=== PATIENT | male | born 1940 | race Caucasian/White ===

== ENCOUNTER 2016-09-02 19:13 | Emergency (ER) | payer OTHER ==
[~2016-09-02] VITALS: Ht 185.4 cm; Wt 97.5 kg
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
--- NOTE | 2016-09-02 20:28 | CT SCAN REPORT ---
EXAMINATION: CT HEAD AND CERVICAL SPINE WITHOUT CONTRAST CLINICAL INFORMATION: Head injury following fall. COMPARISON: Noncontrast head CT 10/20/2011. TECHNIQUE: Contiguous axial imaging was performed from the thoracic inlet to the vertex without intravenous administration of contrast. 2-D coronal and sagittal reformatted images of the cervical spine were obtained at the acquisition workstation. DLP: 1836 mGy-cm. FINDINGS: Head: Noncontrast CT imaging of the head is notable for large right periorbital hematoma and soft tissue swelling. No intraconal or extraconal stranding is identified. There are no appreciable retrobulbar hematomas. There is no acute intracranial abnormality. No acute intracranial hemorrhage, mass or mass effect or abnormal extra-axial fluid collections are identified. The density within the dural venous sinuses is within normal limits. The ventricles are normal in size, without hydrocephalus. There are no focal areas of hypoattenuation within a vascular distribution to suggest acute transcortical ischemia. The basilar cisterns are patent. No acute calvarial abnormality is identified. The imaged paranasal sinuses and mastoid air cells are well aerated. Cervical spine: No acute cervical spine fracture or subluxation. There are mild to moderate degenerative changes of the cervical spine, most significant at C6-C7. Prevertebral soft tissues are within normal limits. There is moderate multilevel facet arthrosis of the cervical spine with varying degrees of neuroforaminal narrowing. The visualized bilateral lung apices are clear. IMPRESSION: 1. Large right periorbital hematoma and soft tissue swelling. Otherwise, no acute intracranial abnormality. No significant intraconal or extraconal stranding and no retrobulbar hematoma. 2. Mild to moderate degenerative changes of the cervical spine, without evidence of acute cervical spine fracture or subluxation.
--- NOTE | 2016-09-02 20:32 | CT SCAN REPORT ---
EXAMINATION: CT MAXILLOFACIAL WITHOUT CONTRAST CLINICAL INFORMATION: Head injury following fall. COMPARISON: None. TECHNIQUE: Multidetector helical imaging was performed in the axial plane with generation of coronal and sagittal reformatted images. 2-D coronal and sagittal reformatted images of the face were obtained at the acquisition workstation. DLP: 1836 mGy-cm. FINDINGS: Noncontrast CT imaging of the face demonstrates large right periorbital soft tissue swelling and hematoma. The bilateral orbits are intact. No orbital roof or orbital floor fractures are identified. There is no significant intraconal or extraconal stranding. No retrobulbar hematomas are identified. The lamina papyracea are intact. The paranasal sinuses and mastoid air cells are well aerated. The carotid canals are normally covered by bone. The ethmoid roofs and cribriform plates are intact. The bilateral nasal bones are intact. There is minimal leftward nasal septal deviation. The mandibular condyles articulate appropriately within the bilateral temporomandibular joints. Limited evaluation of the intracranial contents demonstrates no acute intracranial abnormality. IMPRESSION: Large right periorbital hematoma and soft tissue swelling. No acute maxillofacial fractures. The orbital floors and orbital roofs are intact. No orbital fractures are identified.
[2016-09-02 21:18] VITALS: BP 168/98
== END 2016-09-02 21:20 ==
LOC: ERH 19:13
DX: S00.83XA Contusion of other part of head, initial encounter (principal); S09.90XA Unspecified injury of head, initial encounter; W22.8XXA Striking against or struck by other objects, initial encounter

== ENCOUNTER → 2017-01-22 | Day surgery (SDC) | payer OTHER ==
[~2017-01-22] MED LIST: FINASTERIDE5 M1 PO; LEVOTHYROXINE75 MCG PO; LISINOPRIL-HCT1 EACH PO
[2017-01-22 09:53] LABS: ABSOLUTE BASOPHIL COUNT 0 /CUMM (0.0-0.2); ABSOLUTE EOSINOPHIL COUNT 0.3 /CUMM (0.0-0.7); ABSOLUTE GRANULOCYTE CT 5.1 /CUMM (1.4-6.5); ABSOLUTE LYMPH COUNT 1.9 /CUMM (1.2-3.4); ABSOLUTE MONOCYTE COUNT 0.6 /CUMM (0.10-0.60); BASOPHIL % 0.6 % (0.0-2.0); EOSINOPHIL % 3.6 % (0-5); GRANULOCYTE % 64.4 % (42.2-75.2); HEMATOCRIT 47.2 % (42-52); MEAN CORPUSCULAR HGB 29.5 PG (27.0-31.0); MEAN CORPUSCULAR HGB CONC 32.5 G/DL (33.0-37.0); MEAN CORPUSCULAR VOLUME 90.9 FL (80.0-94.0); PLATELET COUNT 183 /CUMM (130-400); RBC DISTRIBUTION WIDTH 15.3 % (11.5-14.5); RED BLOOD CELL CT 5.19 /CUMM (4.70-6.10)
--- NOTE | 2017-01-22 16:15 | Operative Report ---
Operative/Inv Procedure Report Surgery Date: 01/22/17 Name of Procedure: cystoscopy Pre-Operative Diagnosis: gross hematuria for 2 weeks Post-Operative Diagnosis: same: radiation cytitis Estimated Blood Loss: scant Surgeon/Roast Master: YUNI HUERTAS MD Anesthesia: moderate sedation Drains: 8fr giraldo-to dc in RR prior to home Complications: none Operative/Procedure Note Note: The patient was taken to the operative room and placed on the OR table in supine position. Timeout was performed in order to confirm the patient's identity, procedure, anesthesia, antibiotics, as well as any other pertinent information. After adequate anesthesia, and antibiotics, the patient was then placed lithotomy stirrups draped and prepped in the usual surgical fashion. A 14 [place] cystoscope sheath with a 30 angle lens was inserted into the urethra and advanced into the bladder without difficulty. The bladder was noted to have the findings as discussed above. The bladder was then hydrodistended 2 with the irrigation fluid at 40 cm above the symphysis pubis. No evidence of tumor, increased petechiae, nor Hunner's ulceration was noted. Both ureteral orifices had clear reflux in their orthotopic position. SEE FINDINGS NOTE. No terminal bleed with drainage. Bladder capacity was normal. The bladder was then drained and the cystoscope was removed under direct visualization. The patient tolerated procedure well and was taken to recovery room in satisfactory condition. 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 CC: YUNI HUERTAS MD
== END ==
LOC: STS 02:18
PROVIDERS: Urology
DX: N30.41 Irradiation cystitis with hematuria (principal); I10 Essential (primary) hypertension; Z85.46 Personal history of malignant neoplasm of prostate
CPT/HCPCS: 36415; 93005; 93010; J2250

== ENCOUNTER → 2017-01-29 | Day surgery (SDC) | payer OTHER ==
[~2017-01-29] VITALS: Ht 188 cm; Wt 95.3 kg
--- NOTE | 2017-01-29 17:39 | Operative Report ---
Operative/Inv Procedure Report Surgery Date: 01/29/17 Name of Procedure: right renal ESWL/Fluoroscopy Pre-Operative Diagnosis: right colic with stone Post-Operative Diagnosis: same Estimated Blood Loss: none Surgeon/Teacher Asst: YUNI HUERTAS MD Anesthesia: moderate sedation Specimens: none Complications: none Operative/Procedure Note Note: The patient was taken to the operating room placed on the OR table in supine position. Timeout was performed, with the patient awake, in order to confirm correct procedure, laterality, anesthesia, and other pertinent perioperative information. After adequate anesthesia and antibiotics, the patient was then positioned over the ESWL table cutout overlying the treatment dome. Fluoroscopy , using AP and oblique views, as well as renal ultrasound, or performed in order to locate the stone. The position of the stone was optimized and positioned in the middle of the ESWL crosshairs. The stone was measured to be approximately 6 mm in size adjacent to the mid-renal cyst. ESWL was initiated at low power, and after 200 shockwaves delivered, noting the patient's tolerance to the shockwaves , the power was increased to maximum. At the end of 2500 shockwaves, fluoroscopy confirms the change in consistency of the stone, indicating shattering of the stone. The patient tolerated this procedure well. The patient tolerated the procedures well, and was taken to the recovery room in satisfactory condition. The patient is discharged home with pain medication, and follow-up instructions with in 2-3 weeks' time. Discharge Disposition: Same Day Admissions CC: YUNI HUERTAS MD
== END ==
LOC: STS 03:03
DX: N20.0 Calculus of kidney (principal); R31.0 Gross hematuria; Z85.46 Personal history of malignant neoplasm of prostate; I10 Essential (primary) hypertension; E03.9 Hypothyroidism, unspecified
CPT/HCPCS: J2250